=== PATIENT | female | born 1945 | race African-American/Black ===

== ENCOUNTER 2017-02-19 14:56 | Emergency (ER) | payer MEDICARE ==
[~2017-02-19] VITALS: Ht 157.5 cm; Wt 55.0 kg
[2017-02-19] MEDS ORDERED: FURO-152 PO (15:02)
[2017-02-19 15:34] LABS: HEMATOCRIT. 25.6 % (36.0-48.0); MEAN CORPUSCULAR HEMOGLOBIN 25.2 pg (28.0-32.0); MEAN CORPUSCULAR VOLUME 80.8 fL (81.0-99.0); MEAN PLATELET VOLUME 7.2 fl (7.4-10.4); PLATELET 195 x1000/uL (130-400); RED BLOOD CELL COUNT 3.17 mill/uL (4.2-5.4); RED CELL DISTRIBUTION WIDTH 18.3 % (11.6-14.6)
[2017-02-19 15:42] LABS: PARTIAL THROMBOPLASTIN TIME 24.7 sec (23.4-31.0); PROTHROMBIN TIME 10.8 sec (9.4-11.6)
[2017-02-19 15:43] LABS: CARBON DIOXIDE 23 mEq/L (21-32); CHLORIDE 106 mEq/L (98-107)
[2017-02-19 15:50] LABS: TROPONIN I 0.02 ng/mL (0.00-0.04)
[2017-02-19 15:57] LABS: PLATELET ESTIMATE NORMAL
[2017-02-19] MEDS ORDERED: AMIO100T4 PO (17:43)
[2017-02-19] MEDS ORDERED: LEVA0.6320 IH (17:44)
[2017-02-19] MEDS ORDERED: EVER0.5T PO (17:44)
[2017-02-19] MEDS ORDERED: LOPE2TAB26 PO (17:46)
[2017-02-19] MEDS ORDERED: MAGN400C PO (17:47)
[2017-02-19] MEDS ORDERED: [UNRECOGNIZED DRUG - CODE] OP (17:48)
[2017-02-19] MEDS ORDERED: METO-385 PO (17:50)
[2017-02-19] MEDS ORDERED: ONDA4TAB5 PO (17:53)
[2017-02-19] MEDS ORDERED: MULT-1146 PO (17:53)
[2017-02-19] MEDS ORDERED: OMEP40CA34 PO (17:53)
[2017-02-19] MEDS ORDERED: PRAV40TA58 PO (17:54)
[2017-02-19] MEDS ORDERED: POTA20TA82 PO (17:54)
[2017-02-19] MEDS ORDERED: P20 PO (17:56)
[2017-02-19] MEDS ORDERED: DETLA2 PO (17:58)
[2017-02-19] MEDS ORDERED: VANCOMYCIN 500 MG in DEXT 5% WATER 100 ML IV SCH (19:30)
[2017-02-19] MEDS ORDERED: FUROSEMIDE 40MG/4ML VIAL IVP ONE (19:30)
[2017-02-19] MEDS ORDERED: PIPERACILLIN/TAZOBACTAM 3.375GM/50ML PREMIX IV ONE (19:30)
[2017-02-19] MEDS ORDERED: PIPERACILLIN/TAZ 3.375G PREMIX 50 ML IV NR (19:37)
[2017-02-19] MEDS ORDERED: TACROLIMUS 1MG CAPSULE PO ONE (20:30)
[2017-02-19] MEDS ORDERED: ATORVASTATIN CALCIUM 40MG TABLET PO SCH (20:30)
[2017-02-19] MEDS ORDERED: FUROSEMIDE 20MG/2ML VIAL IVP ONE (22:30)
[2017-02-20 02:15] VITALS: BP 123/70
== END 2017-02-20 02:45 | disposition short-term general hospital (02) ==
LOC: ER 15:32
DX: I11.0 Hypertensive heart disease with heart failure (principal); I50.9 Heart failure, unspecified; J44.1 Chronic obstructive pulmonary disease with (acute) exacerbation; J18.9 Pneumonia, unspecified organism; Z94.2 Lung transplant status; Z88.8 Allergy status to other drugs, medicaments and biological substances
CPT/HCPCS: 36415; 71010; 80053; 83690; 83880; 84484; 85025; 85610; 85730; 87040; 93005; 94660; 96365; 96367; 96375; 96376; 99291; J1940; J2543; J3370; J7060; J7507